=== PATIENT | female | born 1965 | race Caucasian/White ===

== ENCOUNTER 2017-03-02 22:49 | Emergency (ER) | payer OTHER ==
[~2017-03-02 22:49] MED LIST: DOXY100T PO; HYDR10TA16 PO; ORPH100T PO; PERC10TA26 PO; PROT40TA PO; SULF1TAB47 PO
[2017-03-02 22:56] VITALS: BP 142/75; PULSE 109; RESP 20; TEMP 98.9; O2SAT 95
--- NOTE | 2017-03-02 23:21 | PD ---
HPI Chief Complaint: Skin Problem Time Seen by Provider: 23:09 Travel History International Travel<30 days: No Contact w/Intl Traveler<30days: No Traveled to known affect area: No History of Present Illness HPI The patient is a 51-year-old female that complains of redness and swelling to the left lower extremity beginning today. She has never had deep venous thrombosis. She is obese. She has had cellulitis in the past. She denies any fever or chills. PFSH Past Medical History Arthritis: Yes Asthma: No Blood Disorders: No Cancer: No Cardiovascular Problems: Yes Diminished Hearing: No Endocrine: Yes Gastrointestinal Disorders: Yes (? ANASTAMOSIS SITE BLEED - IRON INFUSIONS) GERD: Yes Genitourinary: No Immune Disorder: No Implanted Vascular Access Dvce: Yes Musculoskeletal: Yes Neurologic: No Psychiatric: No Reproductive: Yes Respiratory: Yes Sickle Cell Disease: No Sleep Apnea: Yes (NONE SINCE GASTRIC BYPASS) Thyroid Disease: Yes (HYPOTHYROIDISM) Tetanus Vaccination: Unknown Influenza Vaccination: No ?: Not Menopausal: Yes Past Surgical History Abdominal Surgery: Yes (GASTRIC BYPASS) Section: Yes (X3) Gynecologic Surgery: Yes (C-SECTIONX3, D&C X2) Joint Replacement: Yes (bilaTERAL HIPS) Pacemaker: No Other Surgery: Yes Social History Alcohol Use: No Tobacco Use: No Substance Use: No Allergies-Medications (Allergen,Severity, Reaction): Coded Allergies: penicillin G (Unverified Allergy, Severe, THROAT SWELLS/SOB, 03/02/17) latex (Unverified Allergy, Intermediate, RASH, 03/02/17) lidocaine (Unverified Allergy, Intermediate, SET SKIN ON FIRE, 03/02/17) promethazine (Unverified Adverse Reaction, Severe, Restlessness/Anxiety/ Agitation, 03/02/17) Reported Meds & Prescriptions Reported Meds & Active Scripts Active Review of Systems Except as stated in HPI: all other systems reviewed are Neg Physical Exam Narrative GENERAL: The patient is obese, alert, oriented 3 and slight apparent distress with her left lower extremity swelling/pain. Her vital signs show heart rate of 109 but are otherwise unremarkable. SKIN: Focused skin assessment warm/dry. There is redness on the lower extremity below the knee. At this time it is splotchy redness and slightly tender to the touch and definitely warm to the touch. No cord is palpated in the calf. There is definite swelling of the left leg as compared to the right. HEAD: Atraumatic. Normocephalic. EYES: Pupils equal and round. No scleral icterus. No injection or drainage. ENT: No nasal bleeding or discharge. Mucous membranes pink and moist. NECK: Trachea midline. No JVD. CARDIOVASCULAR: Regular rate and rhythm. No murmur appreciated. RESPIRATORY: No accessory muscle use. Clear to auscultation. Breath sounds equal bilaterally. GASTROINTESTINAL: Abdomen soft, non-tender, nondistended. Hepatic and splenic margins not palpable. MUSCULOSKELETAL: No obvious deformities. No clubbing. No cyanosis. There is 1 + edema of the left lower extremity. NEUROLOGICAL: Awake and alert. No obvious cranial nerve deficits. Motor grossly within normal limits. Normal speech. PSYCHIATRIC: Appropriate mood and affect; insight and judgment normal. Data Data Last Documented VS Vital Signs Date Time Temp Pulse Resp B/P (MAP) Pulse Ox O2 Delivery O2 Flow Rate FiO2 03/02/17 22:56 98.9 109 20 142/75 (97) 95 Orders Orders Complete Blood Count With Diff (03/02/17 23:15) Basic Metabolic Panel (Bmp) (03/02/17 23:15) Us Leg Venous Doppler (03/02/17 23:15) Sulfamet-Trimeth Ds 800-160 Mg (Bactrim (03/02/17 23:30) Doxycycline (Vibramycin) (03/02/17 23:30) Labs Laboratory Tests Test 03/02/17 23:23 White Blood Count 10.2 TH/MM3 Red Blood Count 5.84 MIL/MM3 Hemoglobin 11.4 GM/DL Hematocrit 35.8 % Mean Corpuscular Volume 61.2 FL Mean Corpuscular Hemoglobin 19.4 PG Mean Corpuscular Hemoglobin Concent 31.8 % Red Cell Distribution Width 18.1 % Platelet Count 313 TH/MM3 Mean Platelet Volume 7.7 FL Neutrophils (%) (Auto) 78.2 % Lymphocytes (%) (Auto) 10.8 % Monocytes (%) (Auto) 7.9 % Eosinophils (%) (Auto) 2.3 % Basophils (%) (Auto) 0.8 % Neutrophils # (Auto) 8.0 TH/MM3 Lymphocytes # (Auto) 1.1 TH/MM3 Monocytes # (Auto) 0.8 TH/MM3 Eosinophils # (Auto) 0.2 TH/MM3 Basophils # (Auto) 0.1 TH/MM3 CBC Comment AUTO DIFF Blood Urea Nitrogen 15 MG/DL Creatinine 0.58 MG/DL Random Glucose 99 MG/DL Calcium Level 8.4 MG/DL Sodium Level 137 MEQ/L Potassium Level 3.7 MEQ/L Chloride Level 102 MEQ/L Carbon Dioxide Level 28.7 MEQ/L Anion Gap 6 MEQ/L Estimat Glomerular Filtration Rate 109 ML/MIN MDM Medical Decision Making Medical Screen Exam Complete: Yes Emergency Medical Condition: Yes Medical Record Reviewed: Yes Interpretation(s) The ultrasound venous Doppler of the left leg shows no DVT. The CBC is unremarkable except for a hemoglobin of 11.4. The basic metabolic profile shows a calcium of 8.4 but is otherwise normal. Differential Diagnosis DVT, cellulitis, allergic reaction, contact dermatitis Narrative Course There is no evidence for DVT. The patient has what appears to be early cellulitis with pain, tenderness, redness and warmth over the affected areas. This does not appear to be an allergic reaction or contact dermatitis. Diagnosis Primary Impression: Cellulitis of left lower extremity Additional Instructions: Both antibiotics are taken one twice daily for 10 days. If not better within 5 days you should return to emergency department or your primary care physician for reevaluation and possible admission. Make sure you elevate your leg above the heart as much as possible. Med/Other Pt SpecificInfo: Prescription(s) given Scripts Sulfamethoxazole-Trimethoprim (Bactrim DS) 800-160 Mg Tab 1 TAB PO BID for Infection, #20 TAB 0 Refills Prov: Ralph Ring MD 03/03/17 Doxycycline Hyclate (Doxycycline Hyclate) 100 Mg Cap 100 MG PO BID for Infection, #20 CAP 0 Refills Prov: Ralph Ring MD 03/03/17 Disposition: 01 DISCHARGE HOME Condition: Stable Ralph Ring MD Mar 02, 2017 23:21
[2017-03-02] MEDS ORDERED: DOXYCYCLINE HYCLATE 100 MG CAP PO ONE (23:30)
[2017-03-02] MEDS ORDERED: SULFAMETHOXAZOLE-TRIMETHOPRIM DS 800-160 MG TAB PO ONE (23:30)
[2017-03-02 23:54] LABS: BASOPHIL # 0.1 TH/MM3 (0-0.2); BASOPHIL % 0.8 % (0.0-2.0); EOSINOPHIL # 0.2 TH/MM3 (0-0.4); EOSINOPHIL % 2.3 % (0.0-4.0); HEMATOCRIT 35.8 % (35.0-46.0); LYMPH % 10.8 % (9.0-44.0); LYMPHOCYTE # 1.1 TH/MM3 (1.0-4.8); MEAN CELL VOLUME 61.2 FL (80.0-100.0); MEAN CORPUSCULAR HEMOGLOBIN 19.4 PG (27.0-34.0); MEAN CORPUSCULAR HGB CONC 31.8 % (32.0-36.0); MONO % 7.9 % (0.0-8.0); NEUT % 78.2 % (16.0-70.0); PLATELET COUNT 313 TH/MM3 (150-450); RED BLOOD COUNT 5.84 MIL/MM3 (4.00-5.30); RED CELL DISTRIBUTION WIDTH 18.1 % (11.6-17.2); WHITE BLOOD COUNT 10.2 TH/MM3 (4.0-11.0)
[2017-03-02 23:55] LABS: HEMO FLAGS AUTO DIFF
[2017-03-03 00:05] LABS: POTASSIUM 3.7 MEQ/L (3.5-5.1)
[2017-03-03 00:08] LABS: BICARBONATE 28.7 MEQ/L (21.0-32.0)
--- NOTE | 2017-03-03 00:16 | RADRPT ---
EXAM DATE/TIME: 03/02/2017 23:52 [facility] COMPARISON: US LEG LEFT VENOUS DOPPLER, September 06, 2010, 11:26. INDICATIONS : Left leg pain. MEDICAL HISTORY : Gastroesophageal reflux disease. Left leg pain. SURGICAL HISTORY : section. Gastric bypass. Left hip surgery. ENCOUNTER: Initial ACUITY: 1 day PAIN SCORE: 8/10 LOCATION: Left leg. TECHNIQUE: Venous ultrasound of the leg was performed from the inguinal ligament to the proximal calf. Real-daniel e, color Doppler and spectral tracing, compression and augmentation techniques were used. FINDINGS: There is normal compressibility of the deep venous system from the inguinal region to the proximal ca lf. No echogenic clot is seen in the lumen of the common femoral, femoral, popliteal, and posterior tibial veins. There is a normal response of the venous system to proximal and distal augmentation an d respiration. CONCLUSION: 1. No evidence of deep venous thrombosis. Alberto Lopez MD on March 03, 2017 at 0:14 Board Certified Radiologist. This report was verified electronically.
[2017-03-03] MEDS ORDERED: BACT800T5 PO (00:23)
[2017-03-03] MEDS ORDERED: DOXY100C PO (00:23)
[2017-03-03 00:29] LABS: OVALOCYTES 1+ (NORMAL); PLATELET ESTIMATE SMEAR NORMAL (NORMAL); PLATELET MORPHOLOGY NORMAL (NORMAL); SCAN/DIFF AUTO DIFF CONFIRMED
[2017-03-03 00:35] VITALS: BP 133/85
== END 2017-03-03 00:36 | disposition home or self-care (01) ==
LOC: PHED 22:49
DX: L03.116 Cellulitis of left lower limb (principal); E66.9 Obesity, unspecified
CPT/HCPCS: 80048; 85025; 93971

== ENCOUNTER 2017-04-15 18:35 | Emergency (ER) | payer OTHER ==
[~2017-04-15] VITALS: Ht 167.6 cm; Wt 123.0 kg
[~2017-04-15 18:35] MED LIST changes: +BACT800T5 PO; +DOXY100C PO; -DOXY100T PO; -HYDR10TA16 PO; -ORPH100T PO; -PERC10TA26 PO; -PROT40TA PO; -SULF1TAB47 PO
[2017-04-15 18:42] VITALS: BP 181/82; PULSE 92; RESP 16; TEMP 97.9; O2SAT 96
[2017-04-15] MEDS ORDERED: IBUP-232 PO (18:53)
[2017-04-15] MEDS ORDERED: TURM500C7 (18:53)
[2017-04-15] MEDS ORDERED: CLIN300C5 PO (19:13)
--- NOTE | 2017-04-15 19:13 | PD ---
HPI Chief Complaint: Skin Problem Time Seen by Provider: 19:03 Travel History International Travel<30 days: No Contact w/Intl Traveler<30days: No Traveled to known affect area: No History of Present Illness HPI 51 year old female here with bilateral lower extremity erythema and pain. Patient was treated approximately one month ago for left leg cellulitis. She was placed on doxycycline and Bactrim at that time and reports symptoms resolved. She denies fever or chills. Symptom severity is moderate. No aggravating or alleviating factors. PFSH Past Medical History Arthritis: Yes Asthma: No Blood Disorders: No Cancer: No Cardiovascular Problems: Yes Diminished Hearing: No Endocrine: Yes Gastrointestinal Disorders: Yes (? ANASTAMOSIS SITE BLEED - IRON INFUSIONS) GERD: Yes Genitourinary: No Immune Disorder: No Implanted Vascular Access Dvce: Yes Musculoskeletal: Yes Neurologic: No Psychiatric: No Reproductive: Yes Respiratory: Yes Sickle Cell Disease: No Sleep Apnea: Yes (NONE SINCE GASTRIC BYPASS) Thyroid Disease: Yes (HYPOTHYROIDISM) Tetanus Vaccination: Unknown Influenza Vaccination: No ?: Not Menopausal: Yes Past Surgical History Abdominal Surgery: Yes (GASTRIC BYPASS) Section: Yes (X3) Gynecologic Surgery: Yes (C-SECTIONX3, D&C X2) Joint Replacement: Yes (bilaTERAL HIPS) Pacemaker: No Other Surgery: Yes Social History Alcohol Use: No Tobacco Use: No Substance Use: No Allergies-Medications (Allergen,Severity, Reaction): Coded Allergies: penicillin G (Unverified Allergy, Severe, THROAT SWELLS/SOB, 04/15/17) latex (Unverified Allergy, Intermediate, RASH, 04/15/17) lidocaine (Unverified Allergy, Intermediate, SET SKIN ON FIRE, 04/15/17) promethazine (Unverified Adverse Reaction, Severe, Restlessness/Anxiety/ Agitation, 04/15/17) Reported Meds & Prescriptions Reported Meds & Active Scripts Active Clindamycin (Clindamycin HCl) 300 Mg Cap 300 Mg PO Q6H 10 Days Reported Ibuprofen 600 Mg Tab 600 Mg PO Q6H PRN Turmeric (Turmeric Root Extract) 500 Mg Capsule Unknown Dose Review of Systems Except as stated in HPI: all other systems reviewed are Neg General / Constitutional: No: Fever Physical Exam Narrative GENERAL: Alert female. Nontoxic appearing. SKIN: Warm and dry. Diffuse erythema noted to bilateral lower extremities left greater than right. Erythema starts midshin down to ankles. HEAD: Normocephalic. EYES: No injection or drainage. NECK: Supple, trachea midline. CARDIOVASCULAR: Regular rate and rhythm without murmurs, gallops, or rubs. RESPIRATORY: Breath sounds equal bilaterally. No accessory muscle use. GASTROINTESTINAL: Abdomen soft, non-tender, nondistended. MUSCULOSKELETAL: No cyanosis. Diffuse erythema noted to bilateral lower extremities left greater than right. Erythema starts midshin down to ankles. Bilateral lower extremity nonpitting edema. 2+ dorsal pedis pulse. Normal sensation. No open sores or wounds. Data Data Last Documented VS Vital Signs Date Time Temp Pulse Resp B/P (MAP) Pulse Ox O2 Delivery O2 Flow Rate FiO2 04/15/17 18:42 97.9 92 16 181/82 (115) 96 Orders Orders Ketorolac Inj (Toradol Inj) (04/15/17 19:15) MDM Medical Decision Making Medical Screen Exam Complete: Yes Emergency Medical Condition: Yes Differential Diagnosis Cellulitis, vasculitis, DVT Narrative Course 51 year old female here with bilateral lower extremity erythema and pain. Patient was treated approximately one month ago for left leg cellulitis. She reports similar. She denies fever or chills. On exam she has cellulitis of bilateral lower extremities. No pedal edema. Patient will be treated with clindamycin and follow up with her PCP. She verbalizes understanding and agrees to plan Diagnosis Primary Impression: Cellulitis Qualified Codes: L03.119 - Cellulitis of unspecified part of limb Referrals: Primary Care Physician Additional Instructions: Take medications as prescribed. Follow-up the primary doctor. Scripts Clindamycin (Clindamycin) 300 Mg Cap 300 MG PO Q6H for Infection for 10 Days, #40 CAP 0 Refills Prov: Xnea Etienne 04/15/17 Disposition: 01 DISCHARGE HOME Condition: Stable Xena Etienne Apr 15, 2017 19:13
[2017-04-15] MEDS ORDERED: KETOROLAC TROMETHAMINE 60 MG/2 ML (IM) VIAL IM ONE (19:15)
== END 2017-04-15 19:32 | disposition home or self-care (01) ==
LOC: PHEFT 18:35
DX: L03.116 Cellulitis of left lower limb (principal); M19.90 Unspecified osteoarthritis, unspecified site; K21.9 Gastro-esophageal reflux disease without esophagitis; E03.9 Hypothyroidism, unspecified; Z88.0 Allergy status to penicillin; Z88.8 Allergy status to other drugs, medicaments and biological substances
CPT/HCPCS: 96372; 99284; J1885